=== PATIENT | female | born 1985 | race Caucasian/White ===

== ENCOUNTER 2023-11-30 08:11 | Emergency (ER) | payer BC, SELFPAY ==
[2023-11-30 08:39] VITALS: BP 101/60; PULSE 62; RESP 16; TEMP 36.7; O2SAT 100
--- NOTE | 2023-11-30 09:26 | ED.EAR ---
HPI - Ear Problem General Chief complaint: Ear Stated complaint: ear pain/swelling Source: patient Mode of arrival: ambulatory Limitations: no limitations History of Present Illness HPI Narrative: Patient presents for evaluation of right-sided ear pain for the past week. She has muffled hearing and drainage on her pillow when she wakes from sleep. She has not been swimming lately. No fever, chills, nausea, vomiting, sore throat or cough. No underlying medical problems. Daughter is here being evaluated for similar symptoms. Related Data Allergies Allergy/AdvReac Type Severity Reaction Status Date / Time No Known Allergies Allergy Verified 11/30/23 08:38 Review of Systems Review of Systems: CONSTITUTIONAL: Denies fever, chills, or sweats. EYES: Denies visual changes, redness, or discharge. ENT: Reports right-sided ear pain with decreased hearing and drainage on the pillow when she wakes from sleep CARDIOVASCULAR: Denies chest pain, palpitations, or edema. RESPIRATORY: Denies cough or dyspnea. GASTROINTESTINAL: Denies abdominal pain, nausea, vomiting, or diarrhea. GENITOURINARY: Denies dysuria or hematuria. SKIN: Denies rash or itching. MUSCULOSKELETAL: Denies back pain, joint pain, or myalgia. NEUROLOGIC: Denies headache, numbness, dizziness, or weakness. PSYCHIATRIC: Denies anxiety or depression. [facility] Past Medical History Medical History No pertinent past medical history Surgical History Surgical History No pertinent past surgical history Family History Family History Mother Family history non-contributory Social History Social History Smoking status: Never smoker Substance use: never Living arrangements: with family Gender identity (if verbalized by the patient): Female Sexual Orientation (if Verbalized by the Patient): Straight or Heterosexual Spiritual care concerns: No Exam Narrative: GENERAL: Well-appearing, well-nourished, and in no acute distress. HEAD: Normocephalic, atraumatic. EYES: PERRLA and EOMI. ENT: Nares clear, no rhinorrhea or epistaxis. Mucous membranes moist. Oropharynx without tonsillar hypertrophy exudate or other lesions. Right TM is bulging. There is erythema and swelling of the right ear canal NECK: Supple. No adenopathy or masses. No carotid bruits or JVD CHEST: Clear to auscultation. No respiratory distress. No wheezes rales or rhonchi HEART: Regular rate and rhythm. No murmur heard. Normal peripheral pulses. ABDOMEN: Soft, nontender, nondistended, normal active bowel sounds. EXTREMITIES: Normal range of motion. No edema. SKIN: Warm, dry, no rash. NEURO: No focal deficits. Alert and oriented x3. PSYCH: Normal mood and affect. Course Course Emergency Course: This is a 38-year-old female who presented for evaluation of pain in the right ear with muffled hearing and drainage. She has evidence of otitis media and externa. Will treat with Augmentin and cefdinir. Increase hydration. [id number] agents for symptom management. Follow up with primary provider. Go to the ER for worsening symptoms. Patient in agreement with plan of care. Level of Care: Express Care Visit Vital Signs Vital signs: Vital Signs Temperature 36.7 C 11/30/23 08:39 Pulse Rate 62 11/30/23 08:39 Respiratory Rate 16 11/30/23 08:39 Blood Pressure 101/60 11/30/23 08:39 Pulse Oximetry 100 11/30/23 08:39 Oxygen Delivery Room Air 11/30/23 08:39 Temperature 36.7 C 11/30/23 08:39 Pulse Rate 62 11/30/23 08:39 Respiratory Rate 16 11/30/23 08:39 Blood Pressure 101/60 11/30/23 08:39 Pulse Oximetry 100 11/30/23 08:39 Oxygen Delivery Room Air 11/30/23 08:39 Medical Decision Making Vital Signs V
== END 2023-11-30 09:26 | disposition home or self-care (01) ==
PROVIDERS: Emergency Provider Nurse Practitioner
DX: H60.91 Unspecified otitis externa, right ear (principal); H66.91 Otitis media, unspecified, right ear
CPT/HCPCS: 99213; G0463